=== PATIENT | male | born 1950 | race Caucasian/White ===

== ENCOUNTER → 2018-08-13 | Outpatient (CLI) | payer MEDICARE, BC ==
[2018-08-13 07:22] LABS: Basophils # (A) 0.1 k/uL (0-0.2); Basophils % (A) 1 %; Eosinophils # (A) 0.3 k/uL (0-0.7); Eosinophils % (A) 5 %; HCT 44.4 % (39.0-53.0); HGB 14.5 gm/dL (13.0-17.5); Lymphocytes # (A) 1.7 k/uL (1.0-4.8); Lymphocytes % (A) 25 %; MCH 29.2 pg (25.0-35.0); MCHC 32.6 g/dL (31.0-37.0); MCV 89.6 fL (80.0-100.0); Mean Platelet Volume 6.3; Monocytes # (A) 0.4 k/uL (0-1.0); Monocytes % (A) 7 %; Neutrophils # (A) 3.9 k/uL (1.3-7.7); Neutrophils % (A) 59 %; Platelet Count 247 k/uL (150-450); RBC 4.95 m/uL (4.30-5.90); RDW 13.5 % (11.5-15.5); WBC 6.5 k/uL (3.8-10.6)
[2018-08-13 07:46] LABS: Appearance,Urine Clear (Clear); Bilirubin,Urine Negative (Negative); Blood,Urine Trace (Negative); Color,Urine Yellow; Glucose,Urine (UA) Negative (Negative); Ketones,Urine Negative (Negative); Leukocyte Esterase,Urine Small (Negative); Mucus,Urine Rare /hpf; Nitrite,Urine Negative (Negative); Protein,Urine Negative (Negative); RBC,Urine 2 /hpf (0-5); Specific Gravity,Urine 1.019 (1.001-1.035); Urobilinogen,Urine <2.0 mg/dL (<2.0); WBC,Urine 1 /hpf (0-5)
[2018-08-13 08:22] LABS: ALT 27 U/L (21-72); AST 21 U/L (17-59); Alkaline Phosphatase 65 U/L (38-126); Anion Gap 9 mmol/L; Blood Urea Nitrogen 20 mg/dL (9-20); Calcium 9.6 mg/dL (8.4-10.2); Carbon Dioxide 22 mmol/L (22-30); Chloride 108 mmol/L (98-107); Cholesterol 165 mg/dL (<200); Glucose 113 mg/dL (74-99); HDL Cholesterol 56 mg/dL (40-60); LDL Cholesterol,Calculated 75 mg/dL (0-99); Potassium 4.5 mmol/L (3.5-5.1); Sodium 139 mmol/L (137-145); Total Bilirubin 0.6 mg/dL (0.2-1.3); Total Protein 6.8 g/dL (6.3-8.2); Triglycerides 168 mg/dL (<150)
[2018-08-13 14:40] LABS: Hemoglobin A1C 6.1 % (4.0-6.0)
== END ==
LOC: LABPAT 06:55
PROVIDERS: ATTEND Orthopaedic Surgery
DX: Z01.812 Encounter for preprocedural laboratory examination (principal); E78.5 Hyperlipidemia, unspecified; R73.01 Impaired fasting glucose; Z51.81 Encounter for therapeutic drug level monitoring; Z79.01 Long term (current) use of anticoagulants
CPT/HCPCS: 80053; 80061; 81001; 83036; 83525; 85025; 85730; 87070

== ENCOUNTER 2018-08-24 07:39 | Inpatient (IN) | payer MEDICARE, BC ==
[~2018-08-24 07:39] MED LIST: ACETAMINOPHEN TAB 500 MG TAB PO ONE; HYDROmorphone 0.5 MG/0.5 ML SYRINGE IVP PRN; LIDOCAINE 1% 20 ML VIAL (10MG/ML) FOR IV START INTRADERMA PRN; MELOXICAM 7.5 MG TAB PO ONE; ONDANSETRON 4 MG/2 ML VIAL IVP ONE; ROPIVACAINE 246.25 MG, EPINEPHrine 0.5 MG, KETOROLAC 30 MG, WATER FOR INJECTION,STERILE... MISCELLANE ONE; TRANEXAMIC ACID 1,000 MG in SODIUM CHLORIDE 0.9% 100 ML IVPB ONE; ceFAZolin IN SWFI 2 GM/20 ML SYRINGE IVP ONE
[2018-08-24] MEDS ORDERED: DEXAMETHASONE SOD PHOSPHATE 10 MG/ML 1 ML VIAL IV ONE (08:12)
[2018-08-24] MEDS: LACTATED RINGERS 1,000 ML IV SCH ×2 (08:12→09:32)
[2018-08-24] MEDS ORDERED: MIDAZOLAM (PF) 2 MG/2 ML VIAL IV ONE (08:36)
[2018-08-24 09:03] LABS: INR 0.9 (<1.2); Prothrombin Time 9.6 sec (9.0-12.0)
[2018-08-24] MEDS ORDERED: HYDROcodone/APAP 5-325MG 1 EACH TAB PO PRN (09:08)
[2018-08-24] MEDS ORDERED: HYDROmorphone 0.5 MG/0.5 ML SYRINGE IVP PRN ×2 (09:08)
[2018-08-24] MEDS ORDERED: hydrOXYzine PAMOATE 25 MG CAP PO PRN (09:08)
[2018-08-24] MEDS ORDERED: NA PHOS,M-B/NA PHOS,DI-BA 133 ML ENEMA RECTAL PRN (09:08)
[2018-08-24] MEDS ORDERED: BISACODYL 10 MG SUPP RECTAL PRN (09:08)
[2018-08-24] MEDS ORDERED: MAGNESIUM HYDROXIDE 2,400 MG/10 ML CUP PO PRN (09:08)
[2018-08-24] MEDS ORDERED: DIAZEPAM 5 MG TAB PO PRN (09:08)
[2018-08-24] MEDS ORDERED: NALOXONE 0.4 MG/ML 1 ML VIAL IV PRN (09:08)
[2018-08-24] MEDS ORDERED: ONDANSETRON 4 MG/2 ML VIAL IVP PRN (09:08)
[2018-08-24] MEDS ORDERED: fentaNYL (PF) 50 MCG/ML 2 ML AMP ONE (09:30)
[2018-08-24] MEDS ORDERED: MIDAZOLAM 2 MG/2 ML VIAL ONE (09:30)
[2018-08-24] MEDS ORDERED: PROPOFOL 10 MG/ML 20 ML VIAL IV ONE (09:30)
[2018-08-24] MEDS ORDERED: SODIUM CHLORIDE 0.9% 100 ML BAG ONE (09:30)
[2018-08-24] MEDS ORDERED: TRANEXAMIC ACID 1,000 MG/10 ML VIAL ONE (09:30)
[2018-08-24] MEDS ORDERED: ceFAZolin 3,000 MG in SODIUM CHLORIDE 0.9% IRRIGATIO 3,000 ML IRRIGATION ONE (09:34)
[2018-08-24] MEDS ORDERED: LACTATED RINGERS 1,000 ML IV ONE (10:06)
--- NOTE | 2018-08-24 10:49 | P.OP ---
Date of Procedure: 08/24/18 Preoperative Diagnosis: Severe osteoarthritis right knee Postoperative Diagnosis: Severe osteoarthritis right knee Procedure(s) Performed: Right total knee arthroplasty Implants: Whitaker and Nephew Journey II CR Oxinium cruciate retaining femoral component size 6, right [employer]aker [employer]hew Journey right nonporous tibial baseplate size 5 Whitaker [employer]hew Journey II, XLPE CR articular insert, size 9 mm, Size 5-6 right [employer]aker [employer] Journey BCS resurfacing oval patellar component, 29 mm All components were cemented using Palacos R bone cement.. The articulation is Oxinium on polyethylene. Anesthesia: spinal Surgeon: Wellington Garcia Assistant Distribution Manager #1: Diane Santiago Estimated Blood Loss (ml): 25 Pathology: other (Bone and cartilage) Condition: stable Disposition: PACU Indications for Procedure: After failure of conservative treatment we discussed the surgical and nonsurgical treatment options at length. Patient wishes to proceed with a total knee arthroplasty. Complications specific to this procedure were discussed at length, including but not limited to infection, bleeding, stiffness, and nerve injury. Patient is aware of all these complications and informed consent was obtained Operative Findings: The operative findings are consistent with severe osteoarthritis of the right knee Description of Procedure: Patient was seen in the preoperative area consent was reviewed and operative site was marked with a skin marker. An adductor canal pain catheter was placed by anesthesia in the preoperative area. Patient was then brought to the operating room and given preoperative antibiotics intravenously. A spinal anesthetic was administered by the anesthesia department. A tourniquet was placed on the upper thigh and the lower extremity was prepped and draped in usual sterile fashion. A gram of transexamic acid was given. A universal timeout was then performed which confirmed the patient's name, surgical site, ALLERGIES, and consent. The lower extremity was then exsanguinated and tourniquet was inflated to 250 mmHg. A standard and anterior midline approach to the knee was performed. The skin and subcutaneous tissue was dissected down to the patellar tendon. A medial parapatellar arthrotomy was then performed. The knee was then extended, the patellar was everted, and the knee was again flexed. Anterior horns of both menisci were excised, and a release was performed to the posterior medial aspect of the knee. On gross visual inspection, there was complete loss of articular cartilage in the medial and patellofemoral joint spaces. There was also significant cartilage damage in the lateral compartment. There were multiple periarticular osteophytes which were then removed with a Ronguer. The femoral canal was then opened with the appropriate drill, and the intramedullary femoral cutting guide was then placed and set for 5 of valgus. The distal femoral cutting block was then pinned in place, and the distal femur was then cut. The cutting block was then removed and the cut was checked for flatness. Next, the sizing guide was then placed and set for 3 external rotation based off of the epicondylar axis and Whitesides line. After the femur was sized, the appropriate 4-in-1 cutting block was then pinned in place. The anterior condyles were cut without notching. The posterior and chamfer cuts were performed while protecting the collateral ligaments. The cutting block was then removed, and the femoral canal was plugged with autologous bone. Attention was then directed to the tibia. The remaining ACL was removed with a Ronguer, and the tibia was then gently subluxed forward with a large bent knee retractor. Any remaining menisci was excised. The posterior lateral corner was cauterized in order to cauterize the lateral geniculate artery. The extra medullary tibial cutting guide was then placed, set for the appropriate rotation, slope, and depth of resection. The proximal tibia cutting guide was then pinned in place. Proximal tibia was then cut and sized. Next trials were then placed with the appropriate-sized insert. The knee was able to fully extend and flex to 130 and was stable throughout all range of motion. The knee was then extended, patella everted. Patella was then measured, and then using an osteotomy guide, the patella was cut at the appropriate level. The patella was then measured and drilled and the patella trial was then placed. The knee was then taken through range of motion with the patella trial and the patella tracked normally. The knee was then extended patella trial was then removed and the patella was everted. Knee was then flexed and lug holes were drilled through the femoral trial and the femoral trial was then removed. The tibial was then exposed, and the tibial broach guide was then pinned in place after it was set for the appropriate rotation to allow for the most coverage without overhang. The tibia was then reamed and broached. The cut surfaces of bone were then irrigated with pulsatile lavage. The posterior structures were injected with the ropivacaine solution. The knee was also irrigated with Irrisept solution. The components were then opened, the cement was mixed, and the components were then cemented in place. The cement was allowed to harden with the knee in full extension. While the cement was hardening, the remaining soft tissues were then injected with a ropivacaine solution, which consisted of 246.25 mg of ropivacaine, 0.5 mg of epinephrine, 30 mg of Toradol, 80 g of clonidine, and 48.45 mL of sterile water, for a total of 100 mL of fluid injected. After the cemented hardened. The tourniquet was released, and hemostasis was obtained. A second gram of transexamic acid was given. The knee was again irrigated. The knee was again taken through range of motion and found to be stable throughout all range of motion of 0-130, and the patella tracked normally. The fascia was then closed with #2 strata fix suture. The subcutaneous tissue was closed with 3-0 Vicryl and 3-0 strata fix. Dermabond glue was used for the skin and placed with the knee in flexion. The patient was placed in a sterile silver dressing. Patient was then transferred to recovery room in stable condition. The home care assistant JENNIFER Puga was required due the complexity surgery and the need for a skilled rn surgical. She assisted in positioning, draping, retraction, and closure of the wound.
[2018-08-24] MEDS: PHENYLEPHRINE 10 MG/ML VIAL IV ONE ×2 (11:20→11:40)
[2018-08-24] MEDS ORDERED: NEOSTIGMINE 1 MG/ML 10 ML VIAL IV ONE (11:20)
[2018-08-24 11:35] VITALS: RESP 16
[2018-08-24] MEDS ORDERED: ROPIVACAINE 1,100 MG, SODIUM CHLORIDE 0.9% 500 ML 330 ML MISCELLANE PRN ×2 (11:36)
--- NOTE | 2018-08-24 12:08 | XR ---
EXAMINATION TYPE: XR knee limited RT DATE OF EXAM: 08/24/2018 COMPARISON: NONE HISTORY: 68-year-old male evaluation for postoperative abnormality and alignment TECHNIQUE: 2 views FINDINGS: Images show placement of right total knee arthroplasty. Both distal femoral and proximal tibial compo nents of the prosthesis are well seated without periprosthetic fracture. Anterior soft tissue swellin g as well as soft tissue air and intra-articular air compatible with recent operation. Alignment ita sly anatomic. IMPRESSION: Uncomplicated postoperative appearance right total knee arthroplasty.
[2018-08-24 13:17] VITALS: BMI 37.0
[2018-08-24] MEDS: SODIUM CHLORIDE 0.9% 1,000 ML IV SCH (15:08)
[2018-08-24] MEDS: HYDROcodone/APAP 5-325MG 1 EACH TAB PO PRN ×2 (15:41→22:49)
[2018-08-24] MEDS: ceFAZolin IN SWFI 2 GM/20 ML SYRINGE IVP SCH ×2 (15:42→22:51)
[2018-08-24] MEDS: ASPIRIN 325 MG TAB PO SCH (20:10)
[2018-08-24] MEDS: HYDROmorphone 0.5 MG/0.5 ML SYRINGE IVP PRN (20:10)
[2018-08-24] MEDS: FAMOTIDINE 20 MG TAB PO SCH (20:10)
[2018-08-24] MEDS ORDERED: EZETIMIBE 10 MG TAB PO SCH (21:00)
[2018-08-24] MEDS ORDERED: TOPIRAMATE 25 MG TAB PO SCH (21:00)
[2018-08-24] MEDS ORDERED: ATORVASTATIN 20 MG TAB PO SCH (21:00)
[2018-08-24] MEDS ORDERED: MELATONIN 5 MG TABLET PO SCH (21:00)
[2018-08-24] MEDS ORDERED: SENNOSIDES-DOCUSATE SODIUM 1 EACH TAB PO SCH (21:00)
--- NOTE | 2018-08-24 22:52 | P.CONS ---
History of Present Illness - Reason for Consult Consult date: 08/24/18 Medical management - Chief Complaint Elective right total knee arthroplasty - History of Present Illness Patient is a 68-year-old male with a known history of hypertension, hyperlipidemia, osteoarthritis, GERD and BPH was admitted to the hospital for elective right total knee arthroplasty. Patient tolerated the procedure very well. Currently in is fairly controlled. No complains of nausea vomiting or abdominal pain. No complaints of chest pain or shortness of breath. No headache or dizziness or lightheadedness. Patient's blood pressure is on the lower side at this time. Patient says that he did have an abnormal stress test but cardiac catheterization showed no evidence of obstructive coronary artery disease. Review of Systems Constitutional: Patient denies any fever or chills . No generalized weakness or weight loss. Abdomen: Patient denied nausea vomiting and diarrhea and abdominal pain. Cardiovascular: Patient denies any chest pain or short of breath no palpitations. Respiratory: patient denied any cough is from production. No shortness of breath Neurologic: Patient denied any numbness or tingling headache. Musculoskeletal: Patient denies any complaints of joint swelling or deformity. Skin: Negative Psychiatric: Negative Endocrine: No heat or cold intolerance. No recent weight gain. Genitourinary: No dysuria or hematuria. All other 14 point ROS negative except the above Past Medical History Past Medical History: GERD/Reflux, GI Bleed, Hyperlipidemia, Osteoarthritis (OA), Pneumonia, Prostate Disorder Additional Past Medical History / Comment(s): "Heart murmur, abnormal stress test, false positive NC on EKG, negative cardiac cathetrization. Hx of bleeding ulcer 1 1/2 yrs ago. Episodes of low BP. Pneumonia multiple times, nothing recent. History of Any Multi-Drug Resistant Organisms: None Reported Past Surgical History: Hernia Repair, Joint Replacement, Orthopedic Surgery Additional Past Surgical History / Comment(s): Cataract surgery, left knee replacement, inguinal and umbilical hernia, repair, arm surgery. Past Anesthesia/Blood Transfusion Reactions: No Reported Reaction Past Psychological History: No Psychological Hx Reported Smoking Status: Former smoker Past Alcohol Use History: Occasional Additional Past Alcohol Use History / Comment(s): Quit smoking in 1990. Past Drug Use History: None Reported - Past Family History Father Family Medical History: Cancer Mother Family Medical History: Cancer Brother(s) Family Medical History: Cancer Medications and Allergies Home Medications Medication Instructions Recorded Confirmed Type Aspirin [Adult Low Dose Aspirin EC] 81 mg PO QAM 08/19/18 08/24/18 History Cyclobenzaprine [Flexeril] 10 mg PO HS PRN 08/19/18 08/24/18 History Dutasteride 0.5 mg PO HS 08/19/18 08/24/18 History Ezetimibe/Simvastatin [Vytorin 1 tab PO HS 08/19/18 08/24/18 History 10-40 mg Tablet] Glucosam/Harsha-Msm1/C/Cullen/Bosw 1 tab PO QAM 08/19/18 08/24/18 History [Glucosamine-Chondroitin Tablet] Lisinopril [Zestril] 5 mg PO QAM 08/19/18 08/24/18 History Loratadine [Claritin] 10 mg PO QAM 08/19/18 08/24/18 History Melatonin 10 mg PO HS 08/19/18 08/24/18 History Multivitamins, Thera [Multivitamin 1 tab PO QAM 08/19/18 08/24/18 History (formulary)] Naproxen 500 mg PO Q12H 08/19/18 08/24/18 History [place]-3-6-9 1,600 mg PO QAM 08/19/18 08/24/18 History Ranitidine HCl [Zantac] 150 mg PO BID 08/19/18 08/24/18 History Tadalafil [Cialis] 5 mg PO HS 08/19/18 08/24/18 History Tamsulosin [Flomax] 0.4 mg PO HS 08/19/18 08/24/18 History Testosterone 0.4 mg PO Q14D 08/19/18 08/24/18 History Topiramate [Topamax] 25 mg PO HS 08/19/18 08/24/18 History Vitamin B Complex 1 cap PO QAM 08/19/18 08/24/18 History Allergies Allergy/AdvReac Type Severity Reaction Status Date / Time No Known Allergies Allergy Verified 08/24/18 12:18 Physical Exam Vitals: Vital Signs Temp Pulse Pulse Resp BP BP Pulse Ox 08/24/18 19:33 98.0 F 62 16 105/67 96 08/24/18 15:03 65 107/71 08/24/18 14:48 66 109/71 08/24/18 14:33 63 112/73 08/24/18 14:19 58 L 109/70 08/24/18 14:03 102 H 115/77 08/24/18 14:00 16 08/24/18 13:49 58 L 114/70 08/24/18 13:33 56 L 110/68 08/24/18 13:18 97.8 F 57 L 15 98/62 08/24/18 12:36 58 L 16 92/56 96 08/24/18 12:25 63 16 94/58 96 08/24/18 12:10 93 16 93/60 94 L 08/24/18 11:55 56 L 16 87/56 99 08/24/18 11:40 57 L 16 80/53 98 08/24/18 11:30 65 16 81/53 99 08/24/18 11:20 67 18 77/52 77/44 100 08/24/18 11:13 97.1 F L 76 16 83/45 93 L 08/24/18 08:52 78 16 97/58 97 08/24/18 08:02 98.0 F 95 16 118/75 95 Intake and Output 08/24/18 08/24/18 08/24/18 06:59 14:59 22:59 Intake Total 194 Output Total 25 Balance 1915 Intake: IV 1701 Oral 240 Output: Estimated Blood Loss 25 PHYSICAL EXAMINATION: Patient is lying in the bed comfortably, no acute distress, awake alert and oriented.. HEENT: Normocephalic. Neck is supple. Pupils reactive. Nostrils clear. Oral cavity is moist. Ears reveal no drainage. Neck reveals no JVD, carotid bruits, or thyromegaly. CHEST EXAMINATION: Trachea is central. Symmetrical expansion. Lung guzman clear to auscultation and percussion. CARDIAC: Normal S1, S2 with no gallops. No murmurs ABDOMEN: Soft. Bowel sounds normal. No organomegaly. No abdominal bruits. Extremities: reveal no edema. No clubbing or cyanosis Neurologically awake, alert, oriented x3 with well-coordinated movements. No focal deficits noted Skin: No rash or skin lesions. Psychiatric: Coperative. Nonsuicidal Musculoskeletal: No joint swelling or deformity. Right knee surgical site i ntact.. Assessment and Plan Assessment: Hypertension. Currently patient is hypotensive. Blood pressure medications have been held. Patient takes lisinopril at home. Elective right total knee arthroplasty Degenerative joint disease BPH Hyperlipidemia History of GI bleeding due to ulcers Heart murmur GERD Previous history of smoking History of left total knee arthroplasty DVT prophylaxis plan: Patient continued on pain management and bowel regimen. Continue with incentive spirometry and encourage examination. Continue with DVT prophylaxis. will hold blood pressure medications at this time. Continue to follow closely and further recommendations based on the clinical course. Thank you for your consult. Time with Patient: Greater than 30
[2018-08-24] MEDS ORDERED: TAMSULOSIN 0.4 MG CAP.ER.24H PO SCH (23:00)
[2018-08-25] MEDS: HYDROmorphone 0.5 MG/0.5 ML SYRINGE IVP PRN ×2 (03:43→09:28)
[2018-08-25] MEDS: HYDROcodone/APAP 5-325MG 1 EACH TAB PO PRN (07:27)
[2018-08-25 07:35] VITALS: BP 106/70; PULSE 62; TEMP 97.7
[2018-08-25 08:14] LABS: Basophils % (A) 0 %; Eosinophils # (A) 0.1 k/uL (0-0.7); Eosinophils % (A) 1 %; HCT 41.1 % (39.0-53.0); HGB 13.1 gm/dL (13.0-17.5); Lymphocytes # (A) 2.2 k/uL (1.0-4.8); Lymphocytes % (A) 15 %; MCH 28.9 pg (25.0-35.0); MCHC 31.8 g/dL (31.0-37.0); MCV 90.7 fL (80.0-100.0); Mean Platelet Volume 6.8; Monocytes # (A) 1.2 k/uL (0-1.0); Monocytes % (A) 8 %; Neutrophils % (A) 75 %; Platelet Count 293 k/uL (150-450); RBC 4.54 m/uL (4.30-5.90); RDW 13.8 % (11.5-15.5); WBC 14.7 k/uL (3.8-10.6)
[2018-08-25] MEDS ORDERED: MELOXICAM 7.5 MG TAB PO SCH (09:00)
[2018-08-25] MEDS: ASPIRIN 325 MG TAB PO SCH (09:00)
[2018-08-25] MEDS: FAMOTIDINE 20 MG TAB PO SCH (09:00)
[2018-08-25] MEDS ORDERED: MULTIVITAMINS, THERA 1 EACH TAB PO SCH (09:00)
[2018-08-25] MEDS ORDERED: LORATADINE 10 MG TAB PO SCH (09:00)
[2018-08-25] MEDS ORDERED: HYDROcodone/APAP 7.5-325MG 1 EACH TAB PO PRN (09:25)
[2018-08-25] MEDS: SODIUM CHLORIDE 0.9% 1,000 ML IV SCH (09:27)
[2018-08-25] MEDS: LACTATED RINGERS 1,000 ML IV SCH (09:28)
--- NOTE | 2018-08-25 09:34 | P.DS ---
Providers Date of admission: 08/24/18 07:39 Expected date of discharge: 08/25/18 Attending physician: Wellington Garcia Consults: 08/24/18 09:08 Consult Physician Routine Consulting Provider: Dimitri Quiroga Consult Reason/Comments: medical management Do you want consulting provider notified?: Yes Primary care physician: Arjun Gallegos - Discharge Diagnosis(es) (1) S/P total knee arthroplasty Current Visit: Yes Status: Acute (2) Osteoarthritis of right knee Current Visit: Yes Status: Acute Hospital Course: This is a 68-year-old male with known history of degenerative arthritis of the right knee. The patient presents for evaluation. After discussion and consideration patient elects to proceed with total knee arthroplasty. The patient is seen preoperatively by Dr. Garcia and medically cleared for surgery by their primary care physician. Patient is admitted to [facility] on 08/24/2018 for total knee arthroplasty. The procedures performed without complication or sequelae. The patient is doing well postoperatively. Labs and vital signs are stable on day of discharge. On day of discharge patient's knee incision is healing well. There is minimal erythema. There is no drainage noted at this time. There is minimal soft tissue swelling to the knee. Patient has full foot and ankle motion without difficulty or pain. Calf is soft and nontender to palpation. Neurovascular status to the right lower extremity is intact. Patient is discharged home in good condition. Please see med rec for accurate list of home medications. Plan - Discharge Summary Discharge Rx Participant: Yes New Discharge Prescriptions: New Aspirin 325 mg PO BID #60 tab HYDROcodone/APAP 7.5-325MG [[place] 7.5-325] 1 - 2 tab PO Q6H PRN #56 tab PRN Reason: Pain Sennosides [Senokot] 1 tab PO BID #60 tablet No Action Multivitamins, Thera [Multivitamin (formulary)] 1 tab PO QAM Loratadine [Claritin] 10 mg PO QAM Vitamin B Complex 1 cap PO QAM [place]-3-6-9 1,600 mg PO QAM Glucosam/Harsha-Msm1/C/Cullen/Bosw [Glucosamine-Chondroitin Tablet] 1 tab PO QAM Aspirin [Adult Low Dose Aspirin EC] 81 mg PO QAM Topiramate [Topamax] 25 mg PO HS Cyclobenzaprine [Flexeril] 10 mg PO HS PRN PRN Reason: Muscle Spasm Tamsulosin [Flomax] 0.4 mg PO HS Ezetimibe/Simvastatin [Vytorin 10-40 mg Tablet] 1 tab PO HS Ranitidine HCl [Zantac] 150 mg PO BID Lisinopril [Zestril] 5 mg PO QAM Testosterone 0.4 mg PO Q14D Tadalafil [Cialis] 5 mg PO HS Naproxen 500 mg PO Q12H Melatonin 10 mg PO HS Dutasteride 0.5 mg PO HS Discharge Medication List Aspirin [Adult Low Dose Aspirin EC] 81 mg PO QAM 08/19/18 [History] Cyclobenzaprine [Flexeril] 10 mg PO HS PRN 08/19/18 [History] Dutasteride 0.5 mg PO HS 08/19/18 [History] Ezetimibe/Simvastatin [Vytorin 10-40 mg Tablet] 1 tab PO HS 08/19/18 [History] Glucosam/Harsha-Msm1/C/Ucllen/Bosw [Glucosamine-Chondroitin Tablet] 1 tab PO QAM 08/19/18 [History] Lisinopril [Zestril] 5 mg PO QAM 08/19/18 [History] Loratadine [Claritin] 10 mg PO QAM 08/19/18 [History] Melatonin 10 mg PO HS 08/19/18 [History] Multivitamins, Thera [Multivitamin (formulary)] 1 tab PO QAM 08/19/18 [History] Naproxen 500 mg PO Q12H 08/19/18 [History] [place]-3-6-9 1,600 mg PO QAM 08/19/18 [History] Ranitidine HCl [Zantac] 150 mg PO BID 08/19/18 [History] Tadalafil [Cialis] 5 mg PO HS 08/19/18 [History] Tamsulosin [Flomax] 0.4 mg PO HS 08/19/18 [History] Testosterone 0.4 mg PO Q14D 08/19/18 [History] Topiramate [Topamax] 25 mg PO HS 08/19/18 [History] Vitamin B Complex 1 cap PO QAM 08/19/18 [History] Aspirin 325 mg PO BID #60 tab 08/25/18 [Rx] HYDROcodone/APAP 7.5-325MG [[place] 7.5-325] 1 - 2 tab PO Q6H PRN #56 tab 08/25/18 [Rx] Sennosides [Senokot] 1 tab PO BID #60 tablet 08/25/18 [Rx] Follow up Appointment(s)/Referral(s): Wellington Garcia DO [Doctor of Osteopathic Medicine] - 2 Weeks Activity/Diet/Wound Care/Special Instructions: Weightbearing as tolerated with a walker. CPM 5-6h daily. Leave dressing intact. May be removed by home care nurse or by patient in 10 days. May shower with dressing on. Please follow up with [facility] and call with any questions or concerns, . Discharge Disposition: HOME WITH HOME HEALTH SERVICES
--- NOTE | 2018-08-25 11:10 | P.PN ---
Progress Note - Text 08/25 702am [id number] male status post total knee replacement. Patient has an On-Q pump for postop pain control the solution running at 8 mL an hour with a VAS of 3. Plan to continue On-Q pump infusion
--- NOTE | 2018-08-25 11:13 | P.ONQ ---
Anesthesiology Proc Note - PNB - Peripheral Nerve Block Performed Right Adductor Canal Infusion Time Out Performed: Yes Procedure Start Time: 08:38 Procedure Stop Time: 08:48 Indication: Acute Post-Operative Pain, Requested by physician Sedation Type: Sedate with meaningful contact maintained Preparation: Sterile Dressing Position: Supine Catheter: Indwelling Needle Types: On-Q Needle Size: 100mm (4") Needle Gauge: 21 Technique: Ultrasound (ropi .5% 20cc) Blood Aspirated: No Pain Paresthesia on Injection Noted: No Resistance on Injection: Normal Events: Uneventful and Well Tolerated
== END 2018-08-25 14:43 | disposition home or self-care (01) | DRG 470 ==
LOC: 2ORMAIN 07:39 → 4SSUR 11:49
PROVIDERS: ADMIT Orthopaedic Surgery; ATTEND Orthopaedic Surgery
PROC: 0SRC069 Replacement of Right Knee Joint with Oxidized Zirconium on Polyethylene Synthetic Substitute, Cemented, Open Approach (ICD-10-PCS; principal; 2018-08-24 09:25)
DX: M17.11 Unilateral primary osteoarthritis, right knee (principal); I95.9 Hypotension, unspecified; I10 Essential (primary) hypertension; E78.5 Hyperlipidemia, unspecified; K21.9 Gastro-esophageal reflux disease without esophagitis; N40.0 Benign prostatic hyperplasia without lower urinary tract symptoms; Z79.82 Long term (current) use of aspirin; Z79.1 Long term (current) use of non-steroidal anti-inflammatories (NSAID); Z79.890 Hormone replacement therapy; Z79.899 Other long term (current) drug therapy; Z96.652 Presence of left artificial knee joint; Z98.890 Other specified postprocedural states; Z86.19 Personal history of other infectious and parasitic diseases; Z87.891 Personal history of nicotine dependence; Z87.11 Personal history of peptic ulcer disease; Z87.01 Personal history of pneumonia (recurrent); Z98.42 Cataract extraction status, left eye; Z98.41 Cataract extraction status, right eye; Z82.49 Family history of ischemic heart disease and other diseases of the circulatory system; Z80.9 Family history of malignant neoplasm, unspecified
CPT/HCPCS: 85025; 85610; 88300